=== PATIENT | male | born 1995 | race African-American/Black ===

== ENCOUNTER 2017-03-29 00:26 | Emergency (ER) | payer BC, OTHER ==
[~2017-03-29] VITALS: Ht 180.3 cm; Wt 66.7 kg
[2017-03-29] MEDS ORDERED: LACTATED RINGERS 1,000 ML IV ONE (01:42)
[2017-03-29] MEDS ORDERED: PIPERACILLIN SODIUM/TAZOBACTAM 4.5 GM in D5W 100 ML IVPB 100 ML IV ONE (01:45)
[2017-03-29] MEDS ORDERED: ONDANSETRON 4 MG/2 ML (SDV) Z0FRAN IVP PRN (01:45)
--- NOTE | 2017-03-29 01:50 | ED Abdominal Pain ---
General Chief Complaint: Abdominal/GI Problems Stated Complaint: ABD PAIN Nursing Triage Note: PT PRESENTS TO ER WITH COMPLAINT OF ABD PAIN, FEVER, CONSTIPATION, NAUSEA, AND DIZZINESS. WAS SEEN AT [facility] EARLIER TODAY. TOLD HIM THAT HE WAS "FULL OF A WEEKS WORTH OF POOP". GIVEN A LAXATIVE TO HIM GO. PT STATES HE HAS POOPED SINCE TAKING OF LAXATIVE. BUT IS NOT FEELING ANY BETTER. Sepsis Screen: No Definite Risk Source of Information: Patient, RN/MD ([facility]) Exam Limitations: No Limitations History of Present Illness Date Seen by Provider: Mar 29, 2017 Time Seen by Provider: 01:41 Initial Comments Patient presents to ER by private conveyance with a chief complaint is having abdominal pain started about 1:00 this afternoon doubled him over he can barely walk so he called an ambulance to go to the hospital to be seen at [facility] in [place], [place]. He says they did a CT scan some blood work and urine told and had some inflammation and recommended that he get some GoLYTELY and clean out because he is constipated. He says he got to GoLYTELY then drank it and had about 15 bowel movements and his pain has not gotten any better. He feels fevers and chills and nausea but he has not vomited. Other than the medicine they gave him at the ER he has not taken anything else for his pain. He has no history of trauma to his abdomen, surgeries or other medical problems. He says they mentioned he might have irritable bowel syndrome in the past in January when his episode like this happened and recommended he get a colonoscopy and EGD but he did not get these done. He denies any blood in the diarrhea. Allergies and Home Medications Allergies Coded Allergies: No Known Drug Allergies (Unverified , 03/29/17) Home Medications Ciprofloxacin HCl 500 Mg Tablet, 500 MG PO BID for 3 Days, #6 Ref 0 Prescribed by: MIGUELANGEL KEN on 03/29/17 0505 Hydrocodone Bit/Acetaminophen 1 Tab Tab, 1-2 EACH PO Q6H PRN for PAIN- BREAKTHROUGH, #15 Ref 0 Prescribed by: MIGUELANGEL KEN on 03/29/17 0505 Ondansetron 4 Mg Tab.rapdis, 4 MG PO Q6H PRN for NAUSEA/VOMITING-1ST LINE, #14 Ref 0 Prescribed by: MIGUELANGEL KEN on 03/29/17 0505 Review of Systems Constitutional: chills, diaphoresis, fever, malaise Respiratory: Denies Cough, Denies Shortness of Air Cardiovascular: Denies Chest Pain, Denies Lightheadedness Gastrointestinal: See HPI, Denies Abdomen Distended, Abdominal Pain, Denies Constipated, Diarrhea, Nausea, Denies Vomiting Genitourinary: Denies Burning, Denies Discharge Musculoskeletal: No back pain, No joint pain Skin: No pruritus, No rash Psychiatric/Neurological: Denies Headache, Denies Numbness, Denies Paresthesia Past Mzfvyhj-Woxwtc-Rhydmz Hx Patient Social History Alcohol Use: Denies Use Recreational Drug Use: Yes Drug of Choice: MARIJUANA Smoking Status: Never a Smoker Recent Foreign Travel: No Contact w/Someone Who Travel: No Recent Infectious Disease Expo: No Recent Hopitalizations: No Seasonal Allergies Seasonal Allergies: No Surgeries History of Surgeries: Yes (HAND SX) Respiratory History of Respiratory Disorde: No Cardiovascular History of Cardiac Disorders: No Neurological History of Neurological Disord: No Genitourinary History of Genitourinary Disor: No Gastrointestinal History of Gastrointestinal Di: No Musculoskeletal History of Musculoskeletal Dis: No Endocrine History of Endocrine Disorders: No HEENT History of HEENT Disorders: No Cancer History of Cancer: No Psychosocial History of Psychiatric Problem: No Integumentary History of Skin or Integumenta: No Blood Transfusions History of Blood Disorders: No Physical Exam Vital Signs VS - Last 72 Hours, by Label 03/29/17 03/29/17 01:10 02:52 Temp 101.7 Pulse 107 Resp 20 B/P (MAP) 101/53 (69) Pulse Ox 94 O2 Delivery Room Air Nasal Cannula O2 Flow Rate 2.00 Capillary Refill : Less Than 3 Seconds General Appearance: moderate distress, thin HEENT: PERRL/EOMI, normal ENT inspection, pharynx normal Neck: non-tender, supple, normal inspection Respiratory: chest non-tender, lungs clear, normal breath sounds, no respiratory distress, no accessory muscle use Cardiovascular: normal peripheral pulses, regular rate, rhythm, no edema Peripheral Pulses: 2+ Dorsalis Pedis (R), 2+ Left Dors-Pedis (L), 2+ Radial Pulses (R), 2+ Radial Pulses (L) Gastrointestinal: normal bowel sounds, no organomegaly, guarding, rebound, tenderness (RLQ and periumb) Extremities: no calf tenderness, normal capillary refill Neurologic/Psychiatric: alert, oriented x 3 Skin: normal color, warm/dry Focused Exam Evaluation Lactate Level Laboratory Tests 03/29/17 02:05: Lactic Acid Level 1.12 Lactic Acid Level Laboratory Tests Test 03/29/17 02:05 Lactic Acid Level 1.12 MMOL/L (0.50-2.00) Progress/Results/Core Measures Results/Orders Lab Results Laboratory Tests Test 03/29/17 02:05 03/29/17 02:56 Range/Units White Blood Count 6.9 4.3-11.0 10^3/uL Red Blood Count 4.56 4.35-5.85 10^6/uL Hemoglobin 14.1 13.3-17.7 G/DL Hematocrit 40 40-54 % Mean Corpuscular Volume 87 80-99 FL Mean Corpuscular Hemoglobin 31 25-34 PG Mean Corpuscular Hemoglobin Concent 36 32-36 G/DL Red Cell Distribution Width 12.7 10.0-14.5 % Platelet Count 172 130-400 10^3/uL Mean Platelet Volume 10.9 H 7.4-10.4 FL Neutrophils (%) (Auto) 76 H 42-75 % Lymphocytes (%) (Auto) 8 L 12-44 % Monocytes (%) (Auto) 16 H 0-12 % Eosinophils (%) (Auto) 0 0-10 % Basophils (%) (Auto) 0 0-10 % Neutrophils # (Auto) 5.3 1.8-7.8 X 10^3 Lymphocytes # (Auto) 0.6 L 1.0-4.0 X 10^3 Monocytes # (Auto) 1.1 H 0.0-1.0 X 10^3 Eosinophils # (Auto) 0.0 0.0-0.3 10^3/uL Basophils # (Auto) 0.0 0.0-0.1 10^3/uL Prothrombin Time 15.8 H 12.2-14.7 SEC INR Comment 1.3 0.8-1.4 Activated Partial Thromboplast Time 34 24-35 SEC Sodium Level 137 135-145 MMOL/L Potassium Level 3.2 L 3.6-5.0 MMOL/L Chloride Level 102 98-107 MMOL/L Carbon Dioxide Level 23 21-32 MMOL/L Anion Gap 12 5-14 MMOL/L Blood Urea Nitrogen 13 7-18 MG/DL Creatinine 1.36 H 0.60-1.30 MG/DL Estimat Glomerular Filtration Rate > 60 BUN/Creatinine Ratio 10 Glucose Level 99 70-105 MG/DL Lactic Acid Level 1.12 0.50-2.00 MMOL/L Calcium Level 9.0 8.5-10.1 MG/DL Total Bilirubin 0.5 0.1-1.0 MG/DL Aspartate Amino Transf (AST/SGOT) 18 5-34 U/L Alanine Aminotransferase (ALT/SGPT) 11 0-55 U/L Alkaline Phosphatase 67 40-136 U/L Total Protein 6.9 6.4-8.2 GM/DL Albumin 4.2 3.2-4.5 GM/DL Lipase 29 8-78 U/L Urine Color YELLOW Urine Clarity CLEAR Urine pH 7 5-9 Urine Specific Banks 1.010 L 1.016-1.022 Urine Protein 2+ H NEGATIVE Urine Glucose (UA) NEGATIVE NEGATIVE Urine Ketones 2+ H NEGATIVE Urine Nitrite NEGATIVE NEGATIVE Urine Bilirubin NEGATIVE NEGATIVE Urine Urobilinogen NORMAL NORMAL MG/DL Urine Leukocyte Esterase 1+ H NEGATIVE Urine RBC (Auto) NEGATIVE NEGATIVE Urine RBC NONE /HPF Urine WBC NONE /HPF Urine Squamous Epithelial Cells 2-5 /HPF Urine Crystals NONE /LPF Urine Bacteria NEGATIVE /HPF Urine Casts NONE /LPF Urine Mucus SMALL H /LPF Urine Culture Indicated NO My Orders Orders - MIGUELANGEL KEN Cbc With Automated Diff (03/29/17 01:42) Comprehensive Metabolic Panel (03/29/17 01:42) Lactic Acid Analyzer (03/29/17 01:42) Blood Culture (03/29/17 01:42) Sputum Culture (03/29/17 01:42) Ua Culture If Indicated (03/29/17 01:42) Protime With Inr (03/29/17 01:42) Partial Thromboplastin Time (03/29/17 01:42) Chest 1 View, Ap/Pa Only (03/29/17 01:42) O2 (03/29/17 01:42) Ondansetron Injection (Zofran Injectio (03/29/17 01:45) Saline Lock/Iv-Start (03/29/17 01:42) Saline Lock/Iv-Start (03/29/17 01:42) Piperacillin Sodium/Tazobactam (Zosyn Vi (03/29/17 01:45) Vital Signs Adult Sepsis Patie Q1H (03/29/17 01:42) Remove Rings In Anticipation O (03/29/17 01:42) Lipase (03/29/17 01:42) Ct Abd/Pelv W (Appendicitis) (03/29/17 01:42) Lactated Ringers (Lr 1000 Ml Iv Solution (03/29/17 01:42) Ketorolac Injection (Toradol Injection) (03/29/17 02:15) Medications Given in ED Current Medications Medications Dose Ordered Sig/Ruth Route Start Time Stop Time Status Last Admin Dose Admin Ketorolac Tromethamine 15 mg ONCE ONCE IVP 03/29/17 02:15 03/29/17 02:16 DC 03/29/17 02:10 15 MG Lactated Ringer's 1,000 ml @ 0 mls/hr Q0M ONCE IV 03/29/17 01:42 03/29/17 01:45 DC 03/29/17 01:58 1,000 MLS/HR Ondansetron HCl 4 mg ONCE PRN IVP 03/29/17 01:45 03/29/17 01:58 DC 03/29/17 01:58 4 MG Piperacillin Sod/ Tazobactam Sod 4.5 gm/Dextrose 100 ml @ 200 mls/hr ONCE ONCE IV 03/29/17 01:45 03/29/17 02:14 DC 03/29/17 02:11 200 MLS/HR Vital Signs/I&O Vital Sign - Last 12Hours 03/29/17 03/29/17 01:10 02:52 Temp 101.7 Pulse 107 Resp 20 B/P (MAP) 101/53 (69) Pulse Ox 94 O2 Delivery Room Air Nasal Cannula O2 Flow Rate 2.00 Blood Pressure Mean: 69 Progress Note #1: Time: 01:52 Progress Note Septic:Called [facility] and reviewed white blood cell at [place] yesterday was 12.5. Urine was clear. A CT Abd/Pelvis without contrast was obtained; Appendix was noted to be normal and gallbladder unremarkable. Possible distal enteritis noted. Lactate was 1.5 lipase 10; CMP unremarkable. Patient was given 2 L of fluid, Toradol and sent home with Felix. Progress Note #2: Time: 03:58 Progress Note Patient's feeling a little better and is producing urine now. The fluid-filled colon is Friday because of all the GoLYTELY he just drank and may or may not be an infectious colitis. However I report his previous CT did show some possible enteritis this could also be progression of that finding as that predates when he took the GoLYTELY. A trial outpatient therapy after discussing options of an observation stay versus outpatient. The patient prefers to go outpatient. Return to use ciprofloxacin, ondansetron and loperamide. He'll also have some hydrocodone for pain and diarrhea. Because of his fevers and severe pain and a go ahead and obtain bacterial stool cultures. Diagnostic Imaging Diagonstic Imaging: CT Plain Films/CT/US/NM/MRI: abdomen, pelvis (appy with contrast) Comments Stat rad read: no evidence of acute appendicitis. There is a fluid-filled colon ; consider diarrheal illness. Faint nodular opacities in the right lower lobe consider infectious or inflammatory etiology. Reviewed: Reviewed by Me Diagonstic Imaging: Xray Plain Films/CT/US/NM/MRI: chest (1v) Comments No acute cardiopulmonary processes noted. Reviewed: Reviewed [place] Study (stat rad), Reviewed by Me Departure Impression Impression: Primary Impression: Colitis Disposition: HOME, SELF-CARE Condition: Improved Departure-Patient Inst. Decision time for Depature: 05:01 Referrals: NO,LOCAL PHYSICIAN (PCP/Family) Primary Care Physician Patient Instructions: Diarrhea in Adolescents and Adults Add. Discharge Instructions: Drink plenty of fluids and Gatorade. Use the hydrocodone for pain every 6 hours. If nausea you can use the Zofran every 6 hours. Take the ciprofloxacin twice daily for 3 days. Return to the ER if you're having fevers about 101 not responsive to Tylenol or Motrin or you're having nausea is not controlled with Zofran or your pain is uncontrollable. Go ahead and take 2 tablets of Imodium when you get home and then every 4 hours afterwards having a loose stool take another tablet until your diarrhea is under control. It's important to establish care with a primary care physician and look into getting scopes done to prove whether or not you have an inflammatory bowel disease which may result in this symptoms continuing and can switch her risk for other problems. All discharge instructions reviewed with patient and/or family. Voiced understanding. Scripts Hydrocodone Bit/Acetaminophen (Hydrocodone/Acetaminophen 5/325mg Tablet) 1 Tab Tab 1-2 EACH PO Q6H Y for PAIN-BREAKTHROUGH, #15 TAB 0 Refills Prov: MIGUELANGEL KEN 03/29/17 Ciprofloxacin HCl (Ciprofloxacin HCl) 500 Mg Tablet 500 MG PO BID for 3 Days, #6 TAB 0 Refills Prov: MIGUELANGEL KEN 03/29/17 Ondansetron (Zofran Odt) 4 Mg Tab.rapdis 4 MG PO Q6H Y for NAUSEA/VOMITING-1ST LINE, #14 TAB 0 Refills Prov: MIGUELANGEL KEN 03/29/17 Work/School Note: Work Release Form Date Seen in the Emergency Department: Mar 29, 2017 Return to Work: Mar 31, 2017 Restrictions: No Restrictions MIGUELANGEL KEN Mar 29, 2017 01:50
[2017-03-29] MEDS ORDERED: KETOROLAC 30 MG/ML VIAL IVP ONE (02:15)
[2017-03-29 02:24] LABS: BASOPHILS % (AUTO) 0 % (0-10); EOSINOPHILS % (AUTO) 0 % (0-10); HEMATOCRIT 40 % (40-54); HEMOGLOBIN 14.1 G/DL (13.3-17.7); LYMPHOCYTES # (AUTO) 0.6 X 10^3 (1.0-4.0); LYMPHOCYTES % (AUTO) 8 % (12-44); MEAN CORPUSCULAR HEMOGLOBIN 31 PG (25-34); MEAN CORPUSCULAR HGB CONC 36 G/DL (32-36); MEAN CORPUSCULAR VOLUME 87 FL (80-99); MEAN PLATELET VOLUME 10.9 FL (7.4-10.4); MONOCYTES # (AUTO) 1.1 X 10^3 (0.0-1.0); MONOCYTES % (AUTO) 16 % (0-12); NEUTROPHILS # (AUTO) 5.3 X 10^3 (1.8-7.8); NEUTROPHILS % (AUTO) 76 % (42-75); PLATELET COUNT 172 10^3/uL (130-400); RED BLOOD COUNT 4.56 10^6/uL (4.35-5.85); RED CELL DISTRIBUTION WIDTH 12.7 % (10.0-14.5); WHITE BLOOD COUNT 6.9 10^3/uL (4.3-11.0)
[2017-03-29 02:33] LABS: INR 1.3 (0.8-1.4); PROTHROMBIN TIME PATIENT 15.8 SEC (12.2-14.7)
[2017-03-29 02:44] LABS: ALANINE AMINOTRANSFERASE 11 U/L (0-55); ALBUMIN 4.2 GM/DL (3.2-4.5); ALKALINE PHOSPHATASE 67 U/L (40-136); BILIRUBIN,TOTAL 0.5 MG/DL (0.1-1.0); BUN/CREATININE RATIO 10; CARBON DIOXIDE 23 MMOL/L (21-32); CHLORIDE 102 MMOL/L (98-107); CREATININE SERUM 1.36 MG/DL (0.60-1.30); GFR ESTIMATED > 60; GLUCOSE 99 MG/DL (70-105); LIPASE 29 U/L (8-78); POTASSIUM 3.2 MMOL/L (3.6-5.0); SODIUM 137 MMOL/L (135-145); TOTAL PROTEIN 6.9 GM/DL (6.4-8.2)
[2017-03-29 03:01] LABS: BILIRUBIN,URINE NEGATIVE (NEGATIVE); CLARITY,URINE CLEAR; COLOR,URINE YELLOW; GLUCOSE, URINE (UA) NEGATIVE (NEGATIVE); KETONES,URINE 2+ (NEGATIVE); LEUKOCYTE ESTERASE ,URINE 1+ (NEGATIVE); NITRITE,URINE NEGATIVE (NEGATIVE); PH,URINE 7 (5-9); PROTEIN,URINE 2+ (NEGATIVE); UROBILINOGEN,URINE NORMAL (NORMAL)
[2017-03-29 03:11] LABS: BACTERIA,URINE NEGATIVE /HPF
[2017-03-29] MEDS ORDERED: CIPR500T4 PO (05:05)
[2017-03-29] MEDS ORDERED: ACHD5005 PO (05:05)
[2017-03-29] MEDS ORDERED: ONDA4TAB8 PO (05:05)
[2017-03-29 06:30] VITALS: BP 118/86
--- NOTE | 2017-03-29 06:40 | Diagnostic Imaging Report ---
Clinical indication: Patient with abdominal pain. Exam: Portable chest x-ray upright view. Comparisons: None. Findings: Lungs/pleura: Lungs are clear. There is no pneumothorax. There is no pleural effusion. Mediastinum: Unremarkable. Pulmonary vasculature: Unremarkable. Heart: Unremarkable. Bones/extrathoracic soft tissue: Unremarkable. There is note of contrast within both renal collecting systems. Impression: There is no radiographic evidence of acute cardiopulmonary process. Dictated by: Dictated on workstation # [id number]
[2017-03-29] MEDS ORDERED: LACTATED RINGERS 1,000 ML IV SCH (06:45)
--- NOTE | 2017-03-29 07:48 | Diagnostic Imaging Report ---
Clinical indication: Patient with abdominal pain. Rule out appendicitis. Exam: CT exam of the abdomen and pelvis is performed with 100 cc of 350 IV contrast and oral contrast. Coronal and sagittal reformatted images are created. Comparisons: None. Findings: Visualized lung bases: There is mild bibasilar nodular regions. Liver: Unremarkable. Gallbladder: Unremarkable. Pancreas: Unremarkable. Spleen: Unremarkable. Adrenal glands: Unremarkable. Kidneys/ ureters: Unremarkable. Aorta: Unremarkable. Intraabdominal/ retroperitoneal contents: Unremarkable. Intestines: There are air-fluid levels seen throughout the colon and small bowel which are not significantly dilated. Appendix: Unremarkable. Bladder: Unremarkable. Pelvic organs: Unremarkable. Extra abdominal/ pelvis regions: Unremarkable. Abdominal wall: Unremarkable. Bones: Unremarkable. Impression: 1: There is no evidence of appendicitis. 2: There is multiple air-fluid levels seen throughout the colon and small bowel which are not significantly dilated. These findings may be seen with gastroenteritis and/or diarrhea. Clinical correlation suggested. 3: Mild bibasilar infiltrates possibly from infectious or inflammatory process. I agree with [facility] report. Dictated by: Dictated on workstation # [id number]
--- OUTSIDE RECORDS SUMMARY | 2017-03-30 09:46 | XMS REPORT | CCD ---
Author Author [facility] Organization Unknown Address [address] [place] [address] Care Team Providers Care Section Supervisor Name Role Phone SHEYLA ER, PERICO DO Attphys MADISON ER, PERICO DO Prisurg Allergies Allergy Code Allergy Type Reaction Status No Known Allergies 0 Drug allergy Active Active Medications Unknown or Not Available. Problems Unknown or Not Available. Procedures Procedure Code Procedure Type Date ABDOMEN 2 VIEW DECUB/UPRIGHT 489298944 SNOMED CT [address] 02/16/[address] 02/16/2016 C REACTIVE PROTEIN 75224546 SNOMED CT 02/16/2016 CBC W/ AUTO DIFF (RFLX MAN DIFF IF IND) 4199411 SNOMED CT 02/16/2016 COMPREHENSIVE METABOLIC PANEL 818307657 SNOMED CT 2015 ^CBC W/AUTO DIFF 2641772 SNOMED CT 02/16/2016 Results AMYLASE - Collect Date/Time: 02/16/2016 05:55 Test Name Code Test Result Test Units Test Ref Range AMYLASE 1798-8 147 IU/L L=25 H=125 COMPREHENSIVE METABOLIC PANEL - Collect Date/Time: 02/16/2016 05:55 Test Name Code Test Result Test Units Test Ref Range GLUCOSE 2345-7 105 MG/DL L=70 H=100 SODIUM 2951-2 143 MEQ/L L=135 H=148 POTASSIUM 2823-3 3.2 MEQ/L L=3.5 H=5.3 CHLORIDE 2075-0 106 MEQ/L L=96 H=110 CO2 2028-9 25 MEQ/L L=22 H=29 BUN 3094-0 17 MG/DL L=8 H=22 CREATININE 2160-0 1.0 MG/DL L=0.6 H=1.6 SGOT/AST 1920-8 15 IU/L L=10 H=40 SGPT/ALT 1742-6 13 IU/L L=8 H=54 ALK PHOS 6768-6 64 IU/L L=35 H=115 TOTAL PROTEIN 2885-2 7.3 G/DL L=5.5 H=8.5 ALBUMIN 1751-7 4.4 G/DL L=3.1 H=5.4 TOTAL BILI 1975-2 0.5 MG/DL L=0.0 H=1.5 CALCIUM 58450-6 9.1 MG/DL L=8.2 H=10.6 AGE 20 yrs GFR NonAA 94 GFR AA 114 eGFR >60 N/A eGFR AA* >60 N/A LIPASE - Collect Date/Time: 02/16/2016 05:55 Test Name Code Test Result Test Units Test Ref Range LIPASE 3040-3 321 U/L L=8 H=78 CBC W/ AUTO DIFF (RFLX MAN DIFF IF IND) - Collect Date/Time: 02/16/2016 05:55 Test Name Code Test Result Test Units Test Ref Range WBC 11930-5 13.9 TH/CMM L=4.5 H=10.8 RBC 789-8 4.66 ML/CMM L=4.70 H=6.10 HGB 718-7 14.2 G/DL L=14.0 H=18.0 HCT 4544-3 41.9 % L=42.0 H=52.0 MCV 90 FL L=81 H=99 MCH 30.5 PG L=27.0 H=33.0 MCHC 33.9 G/DL L=31.0 H=36.0 RDW SD 43 FL L=36 H=50 RDW CV 12.9 % L=0.0 H=14.8 MPV 10.8 FL L=9.3 H=12.5 PLT 777-3 226 TH/CMM L=130 H=440 NRBC# 0.00 TH/CMM L=0.00 H=0.00 NRBC% 0.0 /100WBC L=0.0 H=2.0 %NEUT 73.0 % %LYMP 18.5 % %MONO 7.9 % %EOS 0.1 % %BASO 0.1 % #NEUT 10.11 TH/CMM L=2.10 H=8.20 #LYMP 2.56 TH/CMM L=0.90 H=5.20 #MONO 1.09 TH/CMM L=0.16 H=1.00 #EOS 0.02 TH/CMM L=0.00 H=0.80 #BASO 0.02 TH/CMM L=0.00 H=0.20 MANUAL DIFF NOT IND N/A C REACTIVE PROTEIN - Collect Date/Time: 02/16/2016 05:55 Test Name Code Test Result Test Units Test Ref Range C REACTIVE PROTEIN 1987- 0.8 MG/DL L=0.0 H= 1.0 Function Status Unknown or Not Available. History of Immunizations Immunization Code Date DTP 1994 OPV 1994 OPV 1994 OPV 05/23/1995 OPV 10/19/1998 MMR 05/23/1995 MMR 10/19/1998 Hep B, adolescent or pediatric 1994 Hep B, adolescent or pediatric 1994 Hep B, adolescent or pediatric 1994 DTaP 20 1994 DTaP 20 05/23/1995 DTaP 20 01/09/1996 DTaP 20 10/19/1998 varicella 21 02/07/2009 varicella 21 02/28/2012 Hib (PRP-OMP) 49 1994 HPV, quadrivalent 62 12/13/2011 HPV, quadrivalent 62 02/28/2012 Hep A, ped/adol, 2 dose 83 02/28/2012 meningococcal MCV4P 114 12/13/2011 Tdap 115 02/07/2009 Influenza, seasonal, injectable 141 12/13/2011 Plan of Treatment Unknown or Not Available. Social History Smoking Status Code Start Date End Date Never smoker [id number] Vital Signs Unknown or Not Available. Function Status Unknown or Not Available. Goals Unknown or Not Available. ASSESSMENTS Unknown or Not Available. Health Concerns Section Unknown or Not Available.
--- OUTSIDE RECORDS SUMMARY | 2017-03-30 09:46 | XMS REPORT | CCD ---
Author Author JEANNE ALBRIGHT Unknown Address [address] [place] [address] Care Team Providers Care Drop Pit Worker Name Role Phone BRITTON ALONZO MD Attphys BRITTON ALONZO MD Prisurg Allergies Allergy Code Allergy Type Reaction Status No Known Allergies 0 Drug allergy Active Active Medications Unknown or Not Available. Problems Unknown or Not Available. Procedures Procedure Code Procedure Type Date CT ABD AND PELVIS W/CONTRAST 003503577 SNOMED CT 2015 ABDOMEN ONE VIEW 089567687 SNOMED CT 02/13/2016 CHLAMYDIA/GC AMPLIFIED DNA 832779993 SNOMED CT 02/13/2016 C REACTIVE PROTEIN 59622681 SNOMED CT 02/13/2016 UA ROUTINE C&S IF IND 724014055 SNOMED CT 02/13/[address] 02/13/[address] 02/13/2016 COMPREHENSIVE METABOLIC PANEL 814096167 SNOMED CT 2015 CBC W/ AUTO DIFF (RFLX MAN DIFF IF IND) 9740545 SNOMED CT 02/13/2016 ^UA WITH MICRO 842290567 SNOMED CT 02/13/2016 ^CBC W/ MANUAL DIFF 04949676 SNOMED CT 02/13/2016 LOCM 300-349 MG/ML, PER ML 048479878 SNOMED CT 02/13/2016 Results AMYLASE - Collect Date/Time: 02/13/2016 14:45 Test Name Code Test Result Test Units Test Ref Range AMYLASE 1798-8 62 IU/L L=25 H=125 COMPREHENSIVE METABOLIC PANEL - Collect Date/Time: 02/13/2016 14:45 Test Name Code Test Result Test Units Test Ref Range GLUCOSE 2345-7 108 MG/DL L=70 H=100 SODIUM 2951-2 138 MEQ/L L=135 H=148 POTASSIUM 2823-3 3.4 MEQ/L L=3.5 H=5.3 CHLORIDE 2075-0 106 MEQ/L L=96 H=110 CO2 2028-9 23 MEQ/L L=22 H=29 BUN 3094-0 18 MG/DL L=8 H=22 CREATININE 2160-0 0.9 MG/DL L=0.6 H=1.6 SGOT/AST 1920-8 21 IU/L L=10 H=40 SGPT/ALT 1742-6 12 IU/L L=8 H=54 ALK PHOS 6768-6 73 IU/L L=35 H=115 TOTAL PROTEIN 2885-2 7.4 G/DL L=5.5 H=8.5 ALBUMIN 1751-7 4.7 G/DL L=3.1 H=5.4 TOTAL BILI 1975-2 1.2 MG/DL L=0.0 H=1.5 CALCIUM 50515-8 9.9 MG/DL L=8.2 H=10.6 AGE 20 yrs GFR NonAA 107 GFR AA 130 eGFR >60 N/A eGFR AA* >60 N/A LIPASE - Collect Date/Time: 02/13/2016 14:45 Test Name Code Test Result Test Units Test Ref Range LIPASE 3040-3 9 U/L L=8 H=78 CBC W/ AUTO DIFF (RFLX MAN DIFF IF IND) - Collect Date/Time: 02/13/2016 14:45 Test Name Code Test Result Test Units Test Ref Range WBC 28083-5 11.8 TH/CMM L=4.5 H=10.8 RBC 789-8 5.07 ML/CMM L=4.70 H=6.10 HGB 718-7 15.2 G/DL L=14.0 H=18.0 HCT 4544-3 44.7 % L=42.0 H=52.0 MCV 88 FL L=81 H=99 MCH 30.0 PG L=27.0 H=33.0 MCHC 34.0 G/DL L=31.0 H=36.0 RDW SD 41 FL L=36 H=50 RDW CV 12.8 % L=0.0 H=14.8 MPV 10.3 FL L=9.3 H=12.5 PLT 777-3 223 TH/CMM L=130 H=440 NRBC# 0.00 TH/CMM L=0.00 H=0.00 NRBC% 0.0 /100WBC L=0.0 H=2.0 %NEUT 89.8 % %LYMP 5.7 % %MONO 4.0 % %EOS 0.0 % %BASO 0.2 % #NEUT 10.63 TH/CMM L=2.10 H=8.20 #LYMP 0.68 TH/CMM L=0.90 H=5.20 #MONO 0.47 TH/CMM L=0.16 H=1.00 #EOS 0.00 TH/CMM L=0.00 H=0.80 #BASO 0.02 TH/CMM L=0.00 H=0.20 SEGS 89 % BANDS 1 % LYMPHS 6 % MONOS 4 % MANUAL DIFF SEE BELOW N/A UA ROUTINE C&S IF IND - Collect Date/Time: 02/13/2016 17:41 Test Name Code Test Result Test Units Test Ref Range COLOR YELLOW N/A NL: YELLOW APPEARANCE CLEAR N/A NL: CLEAR SPEC GRAV 1.025 N/A NL: 1.002 - 1.022 pH 7.0 N/A NL: 5 - 9 PROTEIN TRACE N/A NL: NEGATIVE mg/dl GLUCOSE NEGATIVE N/A NL: NEGATIVE mg/dl KETONE TRACE N/A NL: NEGATIVE mg/dl BILIRUBIN NEGATIVE N/A NL: NEGATIVE BLOOD NEGATIVE N/A NL: NEGATIVE NITRITE NEGATIVE N/A NL: NEGATIVE LEUK SCREEN NEGATIVE N/A NL: NEGATIVE MICRO INDICATED? SEE BELOW N/A WBC/HPF RARE N/A NL: NEGATIVE RBC/HPF NEGATIVE N/A NL: NEGATIVE CASTS/LPF NEGATIVE N/A NL: NEGATIVE CRYSTALS 1+ AMORPHOUS N/A NL: NEGATIVE MUCOUS THRDS 3+++ N/A NL: NEGATIVE BACTERIA FEW N/A NL: NEGATIVE EPITH CELLS FEW SQUAMOUS N/A NL: NEGATIVE TRICHOMONAS NEGATIVE N/A NL: NEGATIVE YEAST NEGATIVE N/A NL: NEGATIVE CULT SET UP? NO N/A CHLAMYDIA/GC AMPLIFIED DNA - Collect Date/Time: 02/13/2016 17:41 Test Name Code Test Result Test Units Test Ref Range Neisseria Gonorrhoeae 56281-3 NEGATIVE N/A NEGATIVE Chlamydia Trachomatis 95902-7 NEGATIVE N/A NEGATIVE C REACTIVE PROTEIN - Collect Date/Time: 02/13/2016 14:45 Test Name Code Test Result Test Units Test Ref Range C REACTIVE PROTEIN 1988- 1.0 MG/DL L=0.0 H= 1.0 Function Status Unknown [...] Code Start Date End Date Never smoker [id number] Vital Signs Unknown or Not Available. Function Status Unknown or Not Available. Goals Unknown or Not Available. ASSESSMENTS Unknown or Not Available. Health Concerns Section Unknown or Not Available.
--- OUTSIDE RECORDS SUMMARY | 2017-03-30 09:46 | XMS REPORT | CCD ---
Author Author JEANNE ALBRIGHT Unknown Address [address] [place] [address] Care Team Providers Care Payroll Accounting Manager Name Role Phone CANDELARIA MOODY, DEANDRA Mak Attphys DEANDRA GAONA MDsukalani Allergies Allergy Code Allergy Type Reaction Status No Known Allergies 0 Drug allergy Active Active Medications Unknown or Not Available. Problems Unknown or Not Available. Procedures Procedure Code Procedure Type Date ABDOMEN 2 VIEW DECUB/UPRIGHT 474640923 SNOMED CT 2015 RAPID DRUG SCREEN 629926615 SNOMED CT 01/02/2016 UA ROUTINE C&S IF IND 539254760 SNOMED CT 01/02/[address] 01/02/2016 COMPREHENSIVE METABOLIC PANEL 138563162 SNOMED CT 2015 SED RATE 579738945 SNOMED CT 01/02/2016 C REACTIVE PROTEIN 68829392 SNOMED CT 01/02/[address] 01/02/2016 CBC W/ AUTO DIFF (RFLX MAN DIFF IF IND) 7370983 SNOMED CT 01/02/2016 ^CBC W/ MANUAL DIFF 74572777 SNOMED CT 01/02/2016 ^UA AUTO DIPSTICK ONLY 311089459 SNOMED CT 01/02/2016 Results AMYLASE - Collect Date/Time: 01/02/2016 17:35 Test Name Code Test Result Test Units Test Ref Range AMYLASE 1798-8 68 IU/L L=25 H=125 COMPREHENSIVE METABOLIC PANEL - Collect Date/Time: 01/02/2016 17:35 Test Name Code Test Result Test Units Test Ref Range GLUCOSE 2345-7 101 MG/DL L=70 H=100 SODIUM 2951-2 142 MEQ/L L=135 H=148 POTASSIUM 2823-3 3.5 MEQ/L L=3.5 H=5.3 CHLORIDE 2075-0 104 MEQ/L L=96 H=110 CO2 2028-9 27 MEQ/L L=22 H=29 BUN 3094-0 15 MG/DL L=8 H=22 CREATININE 2160-0 1.2 MG/DL L=0.6 H=1.6 SGOT/AST 1920-8 19 IU/L L=10 H=40 SGPT/ALT 1742-6 13 IU/L L=8 H=54 ALK PHOS 6768-6 77 IU/L L=35 H=115 TOTAL PROTEIN 2885-2 7.5 G/DL L=5.5 H=8.5 ALBUMIN 1751-7 5.1 G/DL L=3.1 H=5.4 TOTAL BILI 1975-2 1.1 MG/DL L=0.0 H=1.5 CALCIUM 90919-9 9.9 MG/DL L=8.2 H=10.6 AGE 20 yrs GFR NonAA 76 GFR AA 92 eGFR >60 N/A eGFR AA* >60 N/A LIPASE - Collect Date/Time: 01/02/2016 17:35 Test Name Code Test Result Test Units Test Ref Range LIPASE 3040-3 11 U/L L=8 H=78 RAPID DRUG SCREEN - Collect Date/Time: 01/02/2016 17:50 Test Name Code Test Result Test Units Test Ref Range Cannabinoids (THC) NON-NEGATIVE N/A NEG: < 50 ng/ml Phencyclidine (PCP) NEGATIVE N/A NEG: < 25 ng/ ml Cocaine NEGATIVE N/A NEG: < 300 ng/ml Methamphetamine NEGATIVE N/A NEG: < 1000 ng/ml Opiates NEGATIVE N/A NEG: < 300 ng/ml Amphetamine NEGATIVE N/A NEG: < 1000 ng/ml Benzodiazepines NEGATIVE N/A NEG: < 300 ng/ml Tricyclic Antidepres NEGATIVE N/A NEG: < 300 ng/ ml Methadone NEGATIVE N/A NEG: < 300 ng/ml Barbiturates NEGATIVE N/A NEG: < 200 ng/ml Oxycodone NEGATIVE N/A NEG: < 100 ng/ml Propoxyphene (PPX) NEGATIVE N/A NEG: < 300 ng/ ml CBC W/ AUTO DIFF (RFLX MAN DIFF IF IND) - Collect Date/Time: 01/02/2016 17:35 Test Name Code Test Result Test Units Test Ref Range WBC 36154-4 12.4 TH/CMM L=4.5 H=10.8 RBC 789-8 5.21 ML/CMM L=4.70 H=6.10 HGB 718-7 15.8 G/DL L=14.0 H=18.0 HCT 4544-3 47.2 % L=42.0 H=52.0 MCV 91 FL L=81 H=99 MCH 30.3 PG L=27.0 H=33.0 MCHC 33.5 G/DL L=31.0 H=36.0 RDW SD 41 FL L=36 H=50 RDW CV 12.2 % L=0.0 H=14.8 MPV 10.0 FL L=9.3 H=12.5 PLT 777-3 202 TH/CMM L=130 H=440 NRBC# 0.00 TH/CMM L=0.00 H=0.00 NRBC% 0.0 /100WBC L=0.0 H=2.0 %NEUT 87.6 % %LYMP 5.5 % %MONO 5.8 % %EOS 0.6 % %BASO 0.2 % #NEUT 10.87 TH/CMM L=2.10 H=8.20 #LYMP 0.68 TH/CMM L=0.90 H=5.20 #MONO 0.72 TH/CMM L=0.16 H=1.00 #EOS 0.07 TH/CMM L=0.00 H=0.80 #BASO 0.03 TH/CMM L=0.00 H=0.20 SEGS 84 % BANDS 6 % LYMPHS 5 % MONOS 5 % MANUAL DIFF SEE BELOW N/A SED RATE - Collect Date/Time: 01/02/2016 17:35 Test Name Code Test Result Test Units Test Ref Range SEDRATE 4537-7 4 MM/HR L=0 H=15 UA ROUTINE C&S IF IND - Collect Date/Time: 01/02/2016 17:45 Test Name Code Test Result Test Units Test Ref Range COLOR YELLOW N/A NL: YELLOW APPEARANCE CLEAR N/A NL: CLEAR SPEC GRAV 1.020 N/A NL: 1.002 - 1.022 pH 8.0 N/A NL: 5 - 9 PROTEIN NEGATIVE N/A NL: NEGATIVE mg/dl GLUCOSE NEGATIVE N/A NL: NEGATIVE mg/dl KETONE TRACE N/A NL: NEGATIVE mg/dl BILIRUBIN NEGATIVE N/A NL: NEGATIVE BLOOD NEGATIVE N/A NL: NEGATIVE NITRITE NEGATIVE N/A NL: NEGATIVE LEUK SCREEN NEGATIVE N/A NL: NEGATIVE MICRO INDICATED? NOT INDICATED N/A C REACTIVE PROTEIN - Collect Date/Time: 01/02/2016 17:35 Test Name Code Test Result Test Units Test Ref Range C REACTIVE PROTEIN 1988-5 <0.5 MG/DL L=0.0 H= 1.0 Function Status Unknown [...] Code Start Date End Date Never smoker [id number] Vital Signs Unknown or Not Available. Function Status Unknown or Not Available. Goals Unknown or Not Available. ASSESSMENTS Unknown or Not Available. Health Concerns Section Unknown or Not Available.
--- OUTSIDE RECORDS SUMMARY | 2017-03-30 09:46 | XMS REPORT ---
Author Tye Snider [facility] Address [address] [place], [place] [id number] Care Team Providers Care Bait Maker Name Role Phone Tye Jauregui PCP Unavailable Allergies and Adverse Reactions Name Reaction Notes NO KNOWN DRUG ALLERGIES Plan of Treatment Not available. Medications Active Name Start Date Estimated Completion Date SIG Comments Zofran (as hydrochloride) 4 mg oral tablet take 1 tablet as needed for nausea acetaminophen 500 mg oral tablet take 2 tablets (1,000 mg) by oral route every 6 hours as needed Name Start Date Expiration Date SIG Comments ibuprofen 600 mg oral tablet 07/05/2010 07/19/2010 take 1 tablet (600 mg) by oral route 3 times per day with food for 14 days Flexeril 5 mg oral tablet 07/05/2010 07/15/2010 take 1 tablet by oral route QD at bedtime Problem List Description Status Onset Abdominal pain Active 02/27/2016 Dyspepsia Active 02/27/2016 Diarrhea Active 02/27/2016 Vital Signs Date Time BP-Sys(mm[Hg] BP-Suzanne(mm[Hg]) HR(bpm) RR(rpm) Temp WT HT HC BMI BSA BMI Percentile O2 Sat(%) 02/23/2016 11:22:00 AM 136 mmHg 77 mmHg 69 bpm 18 rpm 98.4 F 175.5 lbs 71 in 24.48 kg/m2 2.00 m2 07/05/2010 11:25:00 AM 108 mmHg 66 mmHg 72 bpm 20 rpm 97.9 F 155.25 lbs 98 % Social History Name Description Comments Tobacco Current every day smoker Marijuana Current some day Alcohol Use - Occasional History of Procedures Date Ordered Description Order Status 07/05/2010 12:00 AM X-RAY EXAM L-2 SPINE 4/>VWS Reviewed Results Summary Not available. History Of Immunizations Not available. History of Past Illness Name Date of Onset Comments Seasonal Allergies Backache, unspecified Jul 05 2010 11:25AM Asthma Abdominal pain 02/27/2016 Dyspepsia 02/27/2016 Diarrhea 02/27/2016 Dyspepsia Feb 23 2016 11:23AM Abdominal pain Feb 23 2016 11:23AM Diarrhea Feb 23 2016 11:23AM Payers Insurance Name Company Name Plan Name Plan Number Policy Number Policy Group Number [id number] N/A History of Encounters Visit Date Visit Type Provider 02/23/2016 Office visit Tye Jauregui DO 07/05/2010 Office visit Marlen HERNANDEZ
--- OUTSIDE RECORDS SUMMARY | 2017-03-30 09:47 | XMS REPORT | Continuity of Care Document ---
Author Author [facility] Organization [facility] Address Unknown Phone Unavailable Allergies There is no data. Medications There is no data. Problems There is no data. Procedures There is no data. Results There is no data. Encounters ACCT No. Visit Date/Time Discharge Status Pt. Type Provider Facility Loc./Unit Complaint [id number] 02/23/2016 10:50:34 02/23/2016 23:59:59 CLS Outpatient Tye Jauregui
== END 2017-03-29 06:30 | disposition home or self-care (01) ==
LOC: ER 00:28
DX: K52.9 Noninfective gastroenteritis and colitis, unspecified (principal); F12.10 Cannabis abuse, uncomplicated
CPT/HCPCS: 36415; 71045; 74177; 80053; 81000; 83605; 83690; 85025; 85610; 85730; 87040; 87045; 87046; 87324; 87449; 89055